=== PATIENT | female | born 1990 | race Caucasian/White ===

== ENCOUNTER → 2020-02-04 14:27 | Outpatient (CLI) | payer OTHER, SELFPAY ==
--- NOTE | 2020-02-04 14:30 | DI.US.S_ITS ---
PROCEDURE: US OB <= 14 WEEKS FETUS INDICATIONS: INITIAL DATING AND VIABILITY OUTSIDE/PRIOR DATING DATA: Last menstrual period (LMP): 12/03/19. LMP-based estimated date of delivery (GIFTY): 09/08/20. First dating scan (date and location): 02/04/20. Estimated date of delivery (GIFTY) from first dating scan: 09/13/20. TECHNIQUE: Real-time scanning was performed of the fetus and maternal pelvic organs, with image documentation. COMPARISON: None. FINDINGS: Embryo: A single live intrauterine is seen. The measured heart rate is 169 beats per minute. The crown-rump length measures 1.76 cm, corresponding to an estimated gestational age of 8 weeks 2 days. It is too early for detailed anatomic assessment. By visual inspection, the amount of amniotic fluid is within normal limits. No significant findings of subchorionic/perigestational hemorrhage are seen. Measurement variability in dating: +/- 4 weeks by LMP, +/- 7 days by mean sac diameter (use before 6 weeks gestation if crown-rump length not able to be measured), +/- 5 days by crown-rump length (up to 8 weeks 6 days gestation), +/- 7 days by crown-rump length (up to 13 weeks 6 days gestation). Maternal organs: Ovaries are not seen. Limited images through the kidneys demonstrate no hydronephrosis. IMPRESSION: A single live intrauterine is seen. No significant discrepancy is found between the estimated gestational age based on these images and the estimated gestational age based upon the given date of the last menstrual period. Dictated by: Zohaib Isaacs M.D. on 02/04/2020 at 15:56 Approved by: Zohaib Isaacs M.D. on 02/04/2020 at 15:57
[2020-02-04 16:17] LABS: Appearance Urine UA CLEAR; Bilirubin Urine UA NEGATIVE (NEGATIVE); Color Urine UA YELLOW; Glucose Urine UA NEGATIVE (Negative); Ketones Urine UA NEGATIVE (NEGATIVE); Leukocyte Esterase Urine UA TRACE (NEGATIVE); Nitrite Urine UA NEGATIVE (Negative); Occult Blood Urine UA TRACE-INTACT (Negative); Protein Urine UA NEGATIVE (Negative); Specific Gravity Urine UA <=1.005 (1.000-1.035); Urobilinogen Urine UA 0.2 E.U./dL (0.2)
[2020-02-04 16:27] LABS: pH Urine UA 5.5 (4.5-8.0)
[2020-02-04 16:31] LABS: Add Manual Diff / Slide Review NO; Basophils Absolute Auto 0 /uL (0-100); Basophils Percent Auto 0.4 % (0-2); Eosinophils Absolute Auto 100 /uL (0-450); Eosinophils Percent Auto 1.5 % (2-4); Hematocrit 41.9 % (36-46); Hemoglobin 13.8 g/dL (12.0-16.0); Lymphocytes Absolute Auto 1500 /uL (1100-4500); Lymphocytes Percent Auto 22.9 % (25-40); Mean Corpuscular Hemoglobin 29.8 PG (26-34); Mean Corpuscular Volume 90.3 fL (80-100); Monocytes Absolute Auto 400 /uL (0-900); Monocytes Percent Auto 6.3 % (3-14); Neutrophils Absolute Auto 4400 /uL (1500-7000); Neutrophils Percent Auto 68.9 % (50-75); Platelet Count 184 X10^3/uL (150-400); Red Blood Cell Count 4.64 X10^6/uL (4.0-5.2); Red Cell Distribution Width 13.9 % (11.6-14.8); White Blood Cell Count 6.4 X10^3/uL (4.5-11.0)
[2020-02-04 16:41] LABS: Bacteria Urine Few (2-10); RBC Urine 0-1/HPF (0-5/HPF); Squamous Epithelial Cell Urine 5-10 /HPF (0-5/HPF); WBC Urine 0-1/HPF (0-5/HPF)
[2020-02-05 03:36] LABS: RPR Screen Non Reactive (Non Reactive)
[2020-02-05 10:26] LABS: Varicella IgG Antibody 2433 index (Immune >165)
[2020-02-06 15:34] LABS: Hepatitis B Surface Antigen NEGATIVE s/c (NEGATIVE)
[2020-02-06 15:50] LABS: HIV 1 & 2 Ab/Ag 4th Gen Combo NEGATIVE (NEGATIVE)
[2020-02-06 17:01] LABS: Hep C Virus Ab w/Reflex Quant NEGATIVE s/c (NEGATIVE)
== END ==
PROVIDERS: PCP Family Medicine; Referring Provider Family Medicine; Visit Provider Family Medicine
DX: Z34.81 Encounter for supervision of other normal pregnancy, first trimester (principal); Z3A.08 8 weeks gestation of pregnancy
CPT/HCPCS: 36415; 76801; 80055; 81003; 81015; 86787; 86803; 86850; 86900; 86901; 87086; 87389

== ENCOUNTER 2020-03-07 20:37 | Emergency (ER) | payer OTHER, SELFPAY ==
[2020-03-07 20:50] VITALS: BP 124/69; PULSE 76; RESP 20; TEMP 36.3; O2SAT 100; BMI 32.1
[2020-03-07] MEDS: ONDANSETRON 4 MG/2 ML INJ IV (22:23)
[2020-03-07] MEDS: SODIUM CHLORIDE 0.9% 1,000 ML 1000 ML IV ×2 (22:24→23:06)
--- NOTE | 2020-03-07 22:26 | PC.NURSE ---
13 weeks has had some intermittent vomiting associated with nausea. Today worse than it has been. Tried zofran at home with no relief. Generalized fatigue and exhaustion. Nauseated upon arrival to ER.
[2020-03-07 22:36] LABS: Add Manual Diff / Slide Review NO; Basophils Absolute Auto 0 /uL (0-100); Basophils Percent Auto 0.4 % (0-2); Eosinophils Absolute Auto 0 /uL (0-450); Eosinophils Percent Auto 0.4 % (2-4); Hemoglobin 13.8 g/dL (12.0-16.0); Lymphocytes Absolute Auto 1100 /uL (1100-4500); Lymphocytes Percent Auto 13.8 % (25-40); Mean Corpuscular HGB Conc 34.5 % (30-36); Mean Corpuscular Hemoglobin 30.7 PG (26-34); Mean Corpuscular Volume 88.9 fL (80-100); Monocytes Absolute Auto 300 /uL (0-900); Monocytes Percent Auto 4.4 % (3-14); Neutrophils Absolute Auto 6400 /uL (1500-7000); Platelet Count 158 X10^3/uL (150-400); Red Blood Cell Count 4.49 X10^6/uL (4.0-5.2); Red Cell Distribution Width 14.2 % (11.6-14.8); White Blood Cell Count 7.9 X10^3/uL (4.5-11.0)
[2020-03-07 22:42] LABS: Alanine Aminotransferase 16 IU/L (<35); Albumin 4.2 g/dL (3.5-5.0); Albumin Globulin Ratio 1.4 (1.0-2.8); Alkaline Phosphatase 43 U/L (38-126); Aspartate Aminotransferase 23 IU/L (14-36); Bilirubin Total 0.5 mg/dL (0.2-1.3); Blood Urea Nitrogen 10 mg/dL (7-17); Calcium 8.7 mg/dL (8.4-10.2); Carbon Dioxide 25 mmol/L (22-32); Chloride 103 mmol/L (98-107); Estimated Glomerular Filt Rate > 60.0 mL/min (>60); Glucose 97 mg/dL (70-100); HEMOLYSIS < 15 (0-50); Potassium 3.6 mmol/L (3.4-5.1); Sodium 135 mmol/L (137-145); Total Protein 7.2 g/dL (6.3-8.2)
[2020-03-07 23:40] LABS: RBC Urine None Seen (0-5/HPF)
[2020-03-07 23:42] LABS: Appearance Urine UA CLEAR; Bilirubin Urine UA NEGATIVE (NEGATIVE); Color Urine UA YELLOW; Glucose Urine UA NEGATIVE (Negative); Ketones Urine UA 3+ (NEGATIVE); Leukocyte Esterase Urine UA NEGATIVE (NEGATIVE); Nitrite Urine UA NEGATIVE (Negative); Occult Blood Urine UA TRACE-LYSED (Negative); Protein Urine UA NEGATIVE (Negative); Specific Gravity Urine UA >=1.030 (1.000-1.035); Urobilinogen Urine UA 0.2 E.U./dL (0.2)
[2020-03-07 23:43] LABS: pH Urine UA 5.5 (4.5-8.0)
[2020-03-07 23:53] LABS: Squamous Epithelial Cell Urine 1-5 /HPF (0-5/HPF); WBC Urine 0-1/HPF (0-5/HPF)
[2020-03-07 23:54] LABS: Bacteria Urine Few (2-10); Culture Indicated Urine Cult Not Indicated
--- NOTE | 2020-03-08 00:26 | PC.NURSE ---
Pt given ice chips and ginerale per request, will monitor.
--- NOTE | 2020-03-08 00:57 | ED_ITS ---
HPI - Nausea/Vomiting/Diarrhea General Chief complaint: Nausea/Vomiting/Diarrhea Stated complaint: 13wks preg, vomiting Time Seen by Provider: 03/07/20 21:48 Source: patient Mode of arrival: Ambulatory Limitations: no limitations History of Present Illness HPI Narrative: 29-year-old at 13 weeks presents with vomiting for at least 24 hours and unable to keep anything down. She did take some oral Zofran at [facility] and found it to be ineffective. She is not having any vaginal cramping, discharge or bleeding. No diarrhea, no dysuria, no chest pain, shortness of breath, fever, flank pain. She has not had an overwhelming amount of related nausea and has only had a handful of episodes where she will have a mild episode of emesis after dinner. Related Data Home Medications Medication Instructions Recorded Confirmed doxylamine succinate 25 mg tablet 25 mg PO BEDTIME PRN 02/05/20 02/05/20 prenat.vits,oliver,kma-xiss-tsnjv 1 tab PO DAILY 02/05/20 02/05/20 pyridoxine (vitamin B6) 25 mg 25 mg PO DAILY 02/05/20 02/05/20 tablet Previous Rx's Medication Instructions Recorded ondansetron 4 mg disintegrating 4 mg PO Q8H PRN #20 tab 03/07/20 tablet Allergies Allergy/AdvReac Type Severity Reaction Status Date / Time No Known Drug Allergies Allergy Verified 02/05/20 13:03 Review of Systems Review of Systems Narrative: Remainder of review of systems including constitutional, ENT, cardiovascular, respiratory, GI, , musculoskeletal, skin, neurologic and ps ychiatric systems reviewed and are unremarkable except as noted in HPI. Patient History Medical History Febrile seizure (Acute) Surgical History H/O wisdom tooth extraction (Acute) S/P primary low transverse (Acute ~11/05/18) Family History Mother Hypertension Father Hypertension Grandfather Old age Prostate cancer Grandmother Dementia Grandmother Family estrangement Grandfather Family estrangement Social History marital status: number of children: 1 pets and animals: No education level: college occupational status: employed current occupational exposures/hazards: No Previous occupational history: Event [employer] duy/confucianist: Shinto special duy needs: No Smoking Status: Never smoker second hand exposure: No alcohol intake: former substance use type: does not use Smoking Status: Never smoker alcohol intake frequency: 0-2 drinks per day Substance Use Type: does not use Exam Narrative Exam Narrative: General: Healthy appearing, in no acute distress. Able to give a complete and coherent history. Well-nourished well-developed HEENT: Dry mucous membranes, normal sclera with reactive pupils, Respiratory: Lungs are clear to auscultation, no wheezing no rales no rhonchi. Full and symmetrical air movement Cardiac: Regular rate and rhythm no murmurs no bruits Abdomen: Soft, gravid, nontender good bowel tones, no flank pain Skin: Warm and dry, no rashes Neurologic: Grossly neurologically intact with no obvious asymmetries or abnorm alities Extremities: No trauma, well perfused Psych: Cooperative, appropriate insight and affect Bedside ultrasound: Viable intrauterine fetus Heart rate 160 Initial Vital Signs Initial Vital Signs: Vital Signs Temperature 97.4 F L 03/07/20 20:50 Pulse Rate 76 03/07/20 20:50 Respiratory Rate 20 03/07/20 20:50 Blood Pressure 124/69 03/07/20 20:50 Pulse Oximetry 100 03/07/20 20:50 Course Orders Ordered: ED Orders 03/07/20 22:19 Complete Blood Count AUTO DIFF Stat Comprehensive Metabolic Panel Stat 03/07/20 23:00 Urinalysis and Microscopic Stat Discontinued Medications Sodium Chloride (Normal Saline 0.9%) 1,000 mls @ 1,000 mls/hr IV BOLUS ONE Stop: 03/07/20 22:47 Last Infusion: 03/07/20 23:04 Dose: 0 mls/hr Documented by: Admin: 03/07/20 22:24 Dose: 1,000 mls/hr Documented by: YAJAIRA Sodium Chloride (Normal Saline 0.9%) 1,000 mls @ 1,000 mls/hr IV BOLUS ONE Stop: 03/08/20 00:04 Last Infusion: 03/08/20 00:34 Dose: 0 mls/hr Documented by: Admin: 03/07/20 23:06 Dose: 1,000 mls/hr Documented by: YAJAIRA Ondansetron HCl (Zofran) 4 mg IV NOW ONE Stop: 03/07/20 21:49 Last Admin: 03/07/20 22:23 Dose: 4 mg Documented by: YAJAIRA Vital Signs Vital signs: Vital Signs - 8 hr 03/07/20 20:50 Temperature 97.4 F L Pulse Rate 76 Respiratory Rate 20 Blood Pressure 124/69 Pulse Oximetry 100 MDM - Nausea/Vomiting/Diarrhea Medical Records Attestation: I reviewed the patient's medical records. Lab Data Attestation: I reviewed the patient's lab results. Result diagrams: 03/07/20 22:19 03/07/20 22:19 Labs: Lab Results 03/07/20 03/07/20 03/07/20 Range/Units 22:19 22:19 23:00 WBC 7.9 (4.5-11.0) X10^3/uL RBC 4.49 (4.0-5.2) X10^6/uL Hgb 13.8 (12.0-16.0) g/dL Hct 40.0 (36-46) % MCV 88.9 (80-100) fL MCH 30.7 (26-34) PG MCHC 34.5 (30-36) % RDW 14.2 (11.6-14.8) % Plt Count 158 (150-400) X10^3/uL Neut % (Auto) 81.0 H (50-75) % Lymph % (Auto) 13.8 L (25-40) % [place] % (Auto) 4.4 (3-14) % Eos % (Auto) 0.4 L (2-4) % Baso % (Auto) 0.4 (0-2) % Neut # (Auto) 6400 (4966-1471) /uL Lymph # (Auto) 1100 (7907-6496) /uL [place]yman # (Auto) 300 (0-900) /uL Eos # (Auto) 0 (0-450) /uL Baso # (Auto) 0 (0-100) /uL Sodium 135 L (137-145) mmol/L Potassium 3.6 (3.4-5.1) mmol/L Chloride 103 (98-107) mmol/L Carbon Dioxide 25 (22-32) mmol/L BUN 10 (7-17) mg/dL Creatinine 0.50 L (0.52-1.04) mg/dL Estimated GFR > 60.0 (>60) mL/min BUN/Creatinine Ratio 20.0 (6-22) Glucose 97 (70-100) mg/dL Calcium 8.7 (8.4-10.2) mg/dL Total Bilirubin 0.5 (0.2-1.3) mg/dL AST 23 (14-36) IU/L ALT 16 (<35) IU/L Alkaline Phosphatase 43 (38-126) U/L Total Protein 7.2 (6.3-8.2) g/dL Albumin 4.2 (3.5-5.0) g/dL Globulin 3.0 (1.7-4.1) g/dL Albumin/Globulin Ratio 1.4 (1.0-2.8) Urine Color Yellow Urine Appearance Clear Urine pH 5.5 (4.5-8.0) Ur Specific [place] >=1.030 H (1.000-1.035) Urine Protein Negative (Negative) Urine Glucose (UA) Negative (Negative) g/dL Urine Ketones 3+ H (NEGATIVE) Urine Occult Blood Trace-lysed (Negative) Urine Nitrate Negative (Negative) Urine Bilirubin Negative (NEGATIVE) Urine Urobilinogen 0.2 (0.2) E.U./dL Ur Leukocyte Esterase Negative (NEGATIVE) Urine RBC None seen (0-5/HPF) Urine WBC 0-1/hpf (0-5/HPF) Ur Squamous Epith Cells 1-5 /hpf (0-5/HPF) Urine Bacteria Few (2-10) H (None) Ur Culture Indicated? Cult not indicated MDM Narrative Medical decision making narrative: 29-year-old woman 13 weeks with 24 hours is significant nausea vomiting unable to keep fluids down. She has been given 2 L of fluid in the emergency department with spontaneous void after. She has been able to keep down mike rufina. Fetus is alive and well. Labs are reviewed and there is no evidence of significant infection, renal abnormality or electrolyte abnormality. Patient has Zofran available to her at home. Is feeling much better and safe for home discharge at this time Discharge Plan Departure Patient Disposition: Home Clinical Impression: Acute vomiting Qualifiers: Weeks of gestation: 13 weeks Qualified Code(s): Z3A.13 - 13 weeks gestation of Instructions: DI for Vomiting -- Adult Activity Restrictions/Additional Instructions: Thank you for coming in today I am glad we were able to get she feeling better with some fluid and some Zofran. Your baby looks like it is growing beautifully. I do not have a full explanation for why you experienced such nausea today but I am not finding any life-threatening etiologies in reviewing her blood work today Please do use Zofran over the next 24 hours to avoid getting back into another cycle where your unable to control your nausea. I hope the rest of your goes well. Prescriptions: No Action ondansetron 4 mg tablet,disintegrating 4 mg PO Q8H PRN (Reason: nausea and vomiting) Qty: 20 RF: 1 prenat.vits,oliver,[id number]-[id number] Tablet 1 tab PO DAILY RF: 0 Unisom (doxylamine) 25 mg tablet 25 mg PO BEDTIME PRNRF: 0 pyridoxine (vitamin B6) 25 mg tablet 25 mg PO DAILY RF: 0 Referrals: Jessica Marcos DO [Primary Care Provider] -
[2020-03-08 01:33] VITALS: BP 97/54; PULSE 65; RESP 14; TEMP 36.8; O2SAT 99
== END 2020-03-08 01:22 | disposition home or self-care (01) ==
PROVIDERS: Emergency Provider Emergency Medicine; PCP Family Medicine
DX: O21.9 Vomiting of pregnancy, unspecified (principal); Z3A.13 13 weeks gestation of pregnancy
CPT/HCPCS: 36415; 80053; 81001; 85025; 96361; 96374; 99284; J2405

== ENCOUNTER → 2020-04-02 13:42 | Outpatient (CLI) | payer OTHER, SELFPAY ==
[2020-04-02 15:13] LABS: Urine N gonorrhoeae NOT DETECTED
[2020-04-02 15:27] LABS: Urine Chlamydia NOT DETECTED
== END ==
PROVIDERS: PCP Family Medicine; Visit Provider Family Medicine
DX: Z11.3 Encounter for screening for infections with a predominantly sexual mode of transmission (principal); Z11.8 Encounter for screening for other infectious and parasitic diseases; Z3A.16 16 weeks gestation of pregnancy
CPT/HCPCS: 87491; 87591

== ENCOUNTER → 2020-04-29 15:44 | Outpatient (CLI) | payer OTHER, SELFPAY ==
--- NOTE | 2020-04-29 15:45 | DI.US.S_ITS ---
PROCEDURE: US OB >= 14 WEEKS FETUS INDICATIONS: ANATOMY OUTSIDE/PRIOR DATING DATA: Last menstrual period (LMP): 12/03/19. LMP-based estimated date of delivery (GIFTY): 09/08/20 . First dating scan (date and location): 02/04/20 . Estimated date of delivery (GIFTY) from first dating scan: 09/13/20 . TECHNIQUE: Real-time scanning was performed of the fetus, with image documentation and biometric measurements. Endovaginal scanning: Not needed. COMPARISON: None. FINDINGS: General: A single living intrauterine gestation is present. Presentation: Breech changing to transverse head right Placenta: Placental position is anterior , without previa. Amniotic fluid index: 13.9 cm, normal range is 5-24 cm. heart rate: 147 beats per minute. Maternal cervical canal: 3.5 cm long. Normal lower limit is 2.5 cm. biometrics: Biparietal diameter: 4.8 cm, 20 weeks 4 days Head circumference: 18.3 cm, 20 weeks 5 days Abdominal circumference: 15.3 cm, Femur length: 3.4 cm, 20 weeks 3 days 20 weeks 3 days Estimated gestational age from initial scan: 20 weeks 3 days Composite gestational age from present scan: 20 weeks 4 days Estimated weight and percentile: 359 g, 55th percentile Measurement variability for biometric dating: +/- 7 days from 14 weeks to 15 weeks 6 days gestation, +/- 10 days from 16 weeks to 21 weeks 6 days gestation, +/- 2 weeks from 22 weeks to 27 weeks 6 days gestation, +/- 3 weeks for 28 weeks gestation or later. weight reference: 4500 g or EFW >90/95% is considered macrosomia or large for gestational age. EFW <10% is small for gestational age. EFW 5% or less is considered intra-uterine growth restriction. Anatomic survey: Neuro: Ventricles are non-dilated at less than 10 mm. Cisterna magna is normal at 3-11 mm. Cerebellum is normal in size and morphology. Nuchal skin fold: Normal at less than 6 mm between 14-21 weeks gestational age. Face: Nose and lips, facial profile are normal. Spine: No evidence for spina bifida. Heart: 4-chambered heart is present, with normal ventricular outflow tracts. Diaphragm: Diaphragm is intact. Stomach: Left-sided stomach is present. Kidneys: No hydronephrosis. Normal is less than 5 mm in 2nd trimester, less than 7 mm in 3rd trimester. Cord: 3-vessel cord has orthotopic insertion. Bladder: Normal in size. Extremities: All 4 extremities identified. IMPRESSION: Appropriate interval growth, no anomaly seen. Dictated by: Raulito Mandujano M.D. on 04/30/2020 at 8:53 Approved by: Raulito Mandujano M.D. on 04/30/2020 at 9:13
[2020-05-02 17:36] LABS: AFP, Serum 80.6 ng/mL (.); Calc Gestational Age As provided (.); Estriol, Free 1.99 ng/mL (.); Inhibin A, MoM 1.25 (.); Maternal Ethnicity Caucasian (.); Maternal Weight 191 lbs (.); Number of Fetuses No (.); OSBR Risk 1 IN 329 (.); Results Report (.); Test Results *Screen Negative* (.); hCG, MoM 3.16 (.); hCG, Serum 86965 mIU/mL (.)
== END ==
PROVIDERS: PCP Family Medicine; Referring Provider Family Medicine; Visit Provider Family Medicine
DX: Z36.89 Encounter for other specified antenatal screening (principal); Z3A.20 20 weeks gestation of pregnancy
CPT/HCPCS: 36415; 76811; 82105; 82677; 84702; 86336

== ENCOUNTER → 2020-06-18 09:46 | Outpatient (CLI) | payer OTHER, SELFPAY ==
[2020-06-18 12:59] LABS: Hematocrit 33.7 % (36-46); Hemoglobin 11.3 g/dL (12.0-16.0)
[2020-06-18 13:18] LABS: GTT (PREG) 1 Hour PP 50gm Dose 71 mg/dL (76-139)
== END ==
PROVIDERS: PCP Family Medicine; Referring Provider Family Medicine; Visit Provider Family Medicine
DX: Z34.90 Encounter for supervision of normal pregnancy, unspecified, unspecified trimester (principal); Z3A.26 26 weeks gestation of pregnancy
CPT/HCPCS: 36415; 82950; 85014; 85018

== ENCOUNTER → 2020-08-18 15:44 | Outpatient (CLI) | payer OTHER, SELFPAY ==
[2020-08-19 14:26] LABS: Strep Grp B PCR POS for Grp B Strep
== END ==
PROVIDERS: PCP Family Medicine; Visit Provider Family Medicine
DX: Z34.90 Encounter for supervision of normal pregnancy, unspecified, unspecified trimester (principal); Z3A.36 36 weeks gestation of pregnancy
CPT/HCPCS: 87653

== ENCOUNTER → 2020-09-12 11:37 | Outpatient (CLI) | payer OTHER, SELFPAY ==
[2020-09-12 12:18] LABS: COVID19 -Nasal RAPID Negative (Negative)
== END ==
PROVIDERS: PCP Family Medicine; Visit Provider Nurse Practitioner
DX: Z11.59 Encounter for screening for other viral diseases (principal)
CPT/HCPCS: 87635

== ENCOUNTER 2020-09-14 06:04 | Inpatient (IN) | payer OTHER, SELFPAY ==
[2020-09-14 07:12] VITALS: BP 135/68
--- NOTE | 2020-09-14 07:14 | P.HPOB_ITS ---
OB HPI Date/Time Date of admission: 09/14/20 Date Patient Seen: 09/14/20 Time Patient Seen: 07:20 History of Present Condition Chief complaint: REPEAT : 2 Para: 1 Estimated Date of Delivery: 09/13/20 Estimated Gestational Age (weeks): 40w1d Narrative: Costa Mayfield is a 30 year old at 40 weeks and 1 day gestation here for repeat . has been uncomplicated with good care. Indications Operative indications ( section): previous uterine surgery History of Present care: good care Dating criteria: based on 1st trimester US only Ultrasounds: normal 1st trimester US and normal mid trimester US Obstetrical complications: none Medical complications: none Preadmission Labs Blood type: A (+) positive -: Antibody screen: negative, GBS status: positive, HBsAG: negative, HIV: negative and RPR/VDLR: negative -: Rubella: immune and Varicella: immune HCT: 40 HCAB: negative PAP: Normal Quad screen: Normal Urine: Mixed maria esther 1 hr GTT: 71 Prior (ies) History: 11/05/18 primary for arrest of labor at 40.4 weeks, 9 lb 13 oz male, breast fed 11.5 months Evaluation Evaluation Baseline heart rate: 130 Variability: Moderate (11-25) monitor accelerations: Present monitor decelerations: Absent Category of Tracing: Reactive PFSH Medical History Febrile seizure Surgical History H/O wisdom tooth extraction S/P primary low transverse (~11/05/18) Family History Mother Hypertension Father Hypertension Grandfather Old age Prostate cancer Grandmother Dementia Grandmother Family estrangement Grandfather Family estrangement Social History marital status: number of children: 1 pets and animals: No education level: college occupational status: employed current occupational exposures/hazards: No Previous occupational history: Event Co[employer]inating [facility] [employer] duy/voodoo: Denominational special duy needs: No Smoking Status: Never smoker second hand exposure: No alcohol intake: former substance use type: does not use Meds Home Medications and Allergies Home Medications Medication Instructions Recorded Confirmed Type doxylamine succinate 25 mg tablet 25 mg PO BEDTIME PRN 02/05/20 02/05/20 History prenat.vits,oliver,eqw-lspi-xcejl 1 tab PO DAILY 02/05/20 02/05/20 History pyridoxine (vitamin B6) 25 mg 25 mg PO DAILY 02/05/20 02/05/20 History tablet ondansetron 4 mg disintegrating 4 mg PO Q8H PRN #20 tab 03/07/20 Rx tablet Allergies Allergy/AdvReac Type Severity Reaction Status Date / Time No Known Drug Allergies Allergy Verified 02/05/20 13:03 Review of Systems Review of Systems ROS: Yes All systems reviewed with the patient and are negative except as otherwise documented Exam Vital Signs (past 8 hours): BP 135/68 HR 71 Const General: healthy appearing and comfortable HENMT Head: normal to inspection Ears: hearing grossly normal bilaterally Nose: external nose normal Face and sinus: normal facial exam Mouth: oral mucosae normal Eyes General: appearance normal, both eyes and all related structures Neck Neck: normal visual inspection Resp Effort & Inspection: normal respiratory effort Auscultation: clear to auscultation bilaterally Cardio Rate: regular rate Rhythm: regular rhythm Heart Sounds: no murmurs GI Other: Gravid, healed low transverse incision scar Back/Spine/Pelvis Back: normal to inspection Skin General: no rashes or lesions noted Extrem General: normal to inspection and no pedal edema Assessment and Plan Assessment and Plan Assessment and Plan narrative: 30 year old at 40 weeks and 1 day gestation here for repeat . Risks and benefits reviewed including risk of bleeding, infection or injury to surrounding organs. Consent signed and in the chart. COVID-19 negative. Will give 2g Ancef prior to surgery.
--- NOTE | 2020-09-14 07:33 | PM.PREOP ---
Pre-operative Note COVID-19 COVID-19 status: Negative Result date/Date tested (Pos, Neg/Pending): 09/12/20 Interval Note History & Physical reviewed/Exam performed by Physician: Yes Changes to H&P: No
[2020-09-14] MEDS: LACTATED RINGERS 1,000 ML 999 ML IV ×3 (07:40→09:15)
[2020-09-14 07:47] LABS: Add Manual Diff / Slide Review NO; Basophils Absolute Auto 100 /uL (0-100); Basophils Percent Auto 0.7 % (0-2); Eosinophils Absolute Auto 100 /uL (0-450); Eosinophils Percent Auto 0.9 % (2-4); Hematocrit 36.8 % (36-46); Hemoglobin 11.9 g/dL (12.0-16.0); Lymphocytes Absolute Auto 2100 /uL (1100-4500); Lymphocytes Percent Auto 22.3 % (25-40); Mean Corpuscular HGB Conc 32.4 % (30-36); Mean Corpuscular Hemoglobin 28.2 PG (26-34); Mean Corpuscular Volume 86.9 fL (80-100); Monocytes Absolute Auto 900 /uL (0-900); Monocytes Percent Auto 8.8 % (3-14); Neutrophils Absolute Auto 6500 /uL (1500-7000); Neutrophils Percent Auto 67.3 % (50-75); Platelet Count 202 X10^3/uL (150-400); Red Blood Cell Count 4.24 X10^6/uL (4.0-5.2); Red Cell Distribution Width 17.2 % (11.6-14.8); White Blood Cell Count 9.7 X10^3/uL (4.5-11.0)
[2020-09-14] MEDS: CEFAZOLIN 2 GM/100 ML FROZ.PIGGY IV (07:47)
--- NOTE | 2020-09-14 08:17 | SUR.OPER ---
Supine on Padded OR bed, head on pillow, safety belt at thigh, arms secured on padded arm boards at <90 degrees abduction. Bump under right buttock. Legs uncrossed, tape over blanket to lower legs.
--- NOTE | 2020-09-14 08:46 | SUR.OPER ---
Live female at 0823. See L&D note.
[2020-09-14 09:29] VITALS: BP 122/54; PULSE 82; RESP 20; TEMP 35.7; O2SAT 99
[2020-09-14 09:34] VITALS: BP 113/62; PULSE 83; RESP 20; O2SAT 100
[2020-09-14 09:39] VITALS: BP 117/52; PULSE 80; RESP 18; O2SAT 99
[2020-09-14 09:45] VITALS: BP 113/48; PULSE 84; RESP 18; TEMP 36.3; O2SAT 100
--- NOTE | 2020-09-14 09:45 | P.OP_ITS ---
Operative Date/Time/Diagnoses Date of procedure: 09/14/20 Time of procedure: 08:00 Pre-op diagnosis: Prior section 40 weeks of Post-op diagnosis: same Procedure & Clinicians Procedure: Repeat low transverse section Same procedure as scheduled: Yes Indications: Prior section Surgeon: Jessica Marcos Bleach Machine Operator: Renetta Burnette Click Yes if Unassisted: No Anesthesia Type: Spinal Operative Notes Findings: 9#9oz Female infant with apgars of 7 and 7, normal tubes, uterus and ovaries Closure Type: primary Specimen(s): none sent Applied: catheter Estimated Blood Loss (mL): 500 Procedure in detail: The patient was taken to the operating room where she was placed in the seated position. Spinal anesthesia was administered. She was then placed in the dorsal supine position with a leftward tilt. She was prepped and draped in the usual sterile fashion. A timeout was performed. Patient had an episode of hypotension after spinal which resolved with medication from anesthesia. After spinal analgesia was found to be adequate, a Pfannenstiel skin incision was made 2 fingerbreadths above the pubic symphysis and carried through to the underlying layer fascia. The fascia was nicked in the midline and the incision extended bilaterally with Metz scissors. The superior aspect of the fascial incision was grasped with a Nayeli clamps, elevated, and the underlying rectus muscles dissected off sharply and bluntly. Attention was then turned to the inferior aspect of this incision which in a similar fashion was grasped with a Nayeli clamps, elevated, and the underlying rectus muscles dissected off sharply and bluntly. The rectus muscles were in the midline. The peritoneum was identified, grasped between 2 hemostats, and entered sharply with the Metzenbaum scissors. This incision was extended superiorly and inferiorly with good visualization of the bladder. The bladder blade was inserted. The vesicouterine peritoneum was identified, grasped with the pickup, and entered sharply with the Metzenbaum scissors. This incision was extended bilaterally, and the bladder flap was created digitally. The bladder blade was reinserted. The lower uterine segment was incised in a transverse fashion with the scalpel. Upon entering the amniotic sac there was a small amount clear amniotic fluid. Dr. Marcos attempted to deliver ' head but it was quite large and was unable to do so. Dr. Burnette was able to successfully deliver the head with fundal pressure from Dr. Marcos and the remainder of the body delivered without difficulty. The cord was double clamped and cut. The was handed off to waiting RN and RT. The placenta was delivered after traction on the cord. The uterus was cleared of all clots and debris then externalized for better visualization. The uterine incision was repaired with O-chromic in a running interlocking fashion and a second layer the same suture was used for an imbricating layer. Hemostasis was achieved. The tubes and ova lasha were examined and were found to be normal and the uterus placed back in the pelvis. The gutters were cleared of all clots and debris. The bladder flap was reapproximated using 2-0 Vicryl in a running fashion. The parietal peritoneum was closed using 2-0 Vicryl in a running fashion. The fascia was reapproximated using 0 Vicryl in a running fashion. Subcutaneous layer was copiously irrigated with warm normal saline. 5 simple interrupted sutures of 3-0 Vicryl were placed to reapproximate the subcutaneous layer. The skin was closed with 4-0 undyed Vicryl in a subcuticular fashion. Steri-Strips were placed. An Aquacel dressing was placed. The uterus was expressed of a small amount of old blood. Sponge, lap, and instrument counts were correct. The patient tolerated the procedure well, and was taken to PACU in stable condition. Dr. Burnette was present throughout the case and was essential to assist with retraction, bleeding control, suturing and delivery of infant. After was handed off to waiting RN and RT she was initially dried and suction. She was pink with a good heart rate but oxygen saturations were in the 50s at 4 minutes of life. She delee suctioned with removed of 12 ml of fluid and started on CPAP, transferred to the nursery. She transitioned from CPAP to NC by 20 minutes of life and gradually weaned off oxygen by 2 hours of life. Complications: none Post-operative Condition: stable Disposition: PACU
[2020-09-14 09:49] VITALS: BP 116/48; PULSE 80; RESP 14; O2SAT 100
[2020-09-14] MEDS: KETOROLAC 30 MG/ML VIAL IV ×2 (14:45→20:55)
[2020-09-14] MEDS: LANOLIN OINT 7 GM 1 APPLIC TOP (16:03)
[2020-09-14] MEDS: ONDANSETRON 4 MG/2 ML INJ IV (16:05)
[2020-09-14] MEDS: LACTATED RINGERS 1,000 ML 100 ML IV (17:00)
[2020-09-14] MEDS: diphenhydrAMINE 50 MG/ML VIAL 25 MG IV (21:46)
[2020-09-15] MEDS: KETOROLAC 30 MG/ML VIAL IV (02:58)
[2020-09-15] MEDS: ONDANSETRON 4 MG/2 ML INJ IV (05:56)
[2020-09-15] MEDS: HYDROCODONE/ACET 5/325 TABLET 1 TAB PO (05:57)
[2020-09-15 06:32] LABS: Add Manual Diff / Slide Review NO; Basophils Absolute Auto 0 /uL (0-100); Basophils Percent Auto 0.3 % (0-2); Eosinophils Absolute Auto 100 /uL (0-450); Eosinophils Percent Auto 0.7 % (2-4); Hematocrit 30.1 % (36-46); Hemoglobin 9.6 g/dL (12.0-16.0); Lymphocytes Absolute Auto 2100 /uL (1100-4500); Lymphocytes Percent Auto 17.8 % (25-40); Mean Corpuscular Volume 87.4 fL (80-100); Monocytes Absolute Auto 900 /uL (0-900); Monocytes Percent Auto 7.3 % (3-14); Neutrophils Absolute Auto 8700 /uL (1500-7000); Neutrophils Percent Auto 73.9 % (50-75); Platelet Count 183 X10^3/uL (150-400); Red Blood Cell Count 3.44 X10^6/uL (4.0-5.2); Red Cell Distribution Width 17.1 % (11.6-14.8); White Blood Cell Count 11.8 X10^3/uL (4.5-11.0)
--- NOTE | 2020-09-15 08:05 | P.PNOB_ITS ---
Subjective - OB Subjective Patient comments: no complaints, pain well controlled and tolerating diet baby status: doing well feeding status: exclusively breast feeding Date Patient Seen: 09/15/20 Time Patient Seen: 07:50 Interval history: No complaints this morning. Has not yet voided since catheter removal but has been up. Bleeding is light and pain controlled. Tolerating a diet. Looking forward to showering this morning. Exam Vital Signs (past 8 hours): Oxygen Delivery Method Room Air Temperature 97.3? blood pressure 96/54 heart rate 87 respirations 19 Narrative Exam Narrative: General: Awake and alert, no acute distress. HEENT: NCAT, EOMI, moist oral mucosa CV: Regular rate and rhythm, no murmurs, rubs or gallops Lungs: CTAB, no wheezes, rales, or rhonchi Abdomen: Aquacel dressing intact without drainage. Soft, nontender; bowel tones active; uterus firm 1 cm below umbilicus. Extremities: Warm, no edema bilaterally, 2+ pedal pulses bilaterally Objective Labs Result Diagrams: 09/15/20 06:24 Labs: Laboratory Results - last 24 hr 09/14/20 09/15/20 07:35 06:24 WBC 11.8 H RBC 3.44 L Hgb 9.6 L Hct 30.1 L MCV 87.4 MCH 28.0 MCHC 32.0 RDW 17.1 H Plt Count 183 Neut % (Auto) 73.9 Lymph % (Auto) 17.8 L [place] % (Auto) 7.3 Eos % (Auto) 0.7 L Baso % (Auto) 0.3 Neut # (Auto) 8700 H Lymph # (Auto) 2100 [place] # (Auto) 900 Eos # (Auto) 100 Baso # (Auto) 0 Blood Type A Positive Antibody Screen Negative Assessment & Plan Assessment and Plan (1) S/P : Status: Acute (2) 40 weeks gestation of : Status: Acute Plan day: 1 plan OB: routine postop care Comments: Encouraged her to get up out of bed today. Anticipate discharge home tomorrow. Time Spent With Patient Time: Total time spent is greater than 50% in coordination of care (as documented) at patient's floor/unit and/or counseling patient: Time with patient: less than 15 minutes
[2020-09-15] MEDS: ACETAMINOPHEN 325 MG TABLET 650 MG PO ×3 (09:23→21:20)
[2020-09-15] MEDS: DOCUSATE 250 MG CAPSULE PO (09:24)
[2020-09-15] MEDS: IBUPROFEN 600 MG TABLET PO ×3 (09:24→21:21)
[2020-09-15] MEDS: PRENATAL VIT,CALC/IRON/FOLIC 1 TABLET 1 TAB PO (09:24)
[2020-09-16] MEDS: IBUPROFEN 600 MG TABLET PO ×2 (03:20→09:00)
[2020-09-16] MEDS: ACETAMINOPHEN 325 MG TABLET 650 MG PO (03:20)
[2020-09-16 07:37] VITALS: BP 124/63; PULSE 80; RESP 14; TEMP 37.1
--- NOTE | 2020-09-16 07:46 | PM.OBDS.1 ---
Discharge Providers Provider Date of admission: 09/14/20 06:04 Discharge Date: 09/16/20 Primary care physician: Jessica Marcos DO Consults: 09/14/20 10:14 Consult to Telegraph Repeater Technician Routine Comment: Discharge provider: Jessica Marcos DO Summary Hospital Course Date Patient Seen: 09/16/20 Time Patient Seen: 10:30 Procedures: Repeat low transverse section Hospital Course: 30 year old [id number] after uncomplicated repeat section on 09/14/20 at 40 weeks and 1 day gestation. Patient had an episode of hypotension after spinal placement which resolved with medication from anesthesia. She was delivered of a 9 lb 9 oz female with apagars of 7 and 7. required CPAP initially for hypoxia then transitioned to nasal cannula. Infant weaned to room air over 2 hours and did well. was going very well. course uncomplicated. Patient was ambulating, voiding, passing flatus and tolerating a diet. Vaginal bleeding was light and pain controlled with Tylenol and ibuprofen with minimal hydrocodone. Patient was advised to call for fevers, severe pain or bleeding through more than a pad an hour. She will follow up in clinic on 09/21 for Aquacel removal. Peripartum Data Infant Delivery Method: Section complications: none [place] 1: Gender: Female Disposition of : home Discharge Diagnosis (1) S/P : Status: Acute (2) 40 weeks gestation of : Status: Acute Status at Discharge Functional status at discharge: independent ambulation Overall status at discharge: patient is progressing back to baseline Time Spent with Patient Time attestation: Total time spent providing and/or coordinating discharge services: Time spent: Less than 30 minutes Objective Labs Result Diagrams: 09/15/20 06:24 Exam Vital Signs (past 8 hours): Oxygen Delivery Method Room Air Temperature 97.4? blood pressure 108/71 heart rate 73 respirations 17 Narrative Exam Narrative: General: Awake and alert, no acute distress. HEENT: NCAT, EOMI, moist oral mucosa CV: Regular rate and rhythm, no murmurs, rubs or gallops Lungs: CTAB, no wheezes, rales, or rhonchi Abdomen: Aquacel dressing intact without drainage. Soft, nontender; bowel tones active; uterus firm 1 cm below umbilicus. Extremities: Warm, no edema bilaterally Discharge Plan Discharge Plan Patient Disposition: Home Discharge orders & Medications Prescriptions: New acetaminophen 325 mg Tablet 650 mg PO Q6HR PRN (Reason: Fever/Mild Pain (1-3)) Qty: 30 RF: 0 Continued hydrocodone-acetaminophen 5-325 mg tablet 1 tab PO Q4HR PRN (Reason: Pain, Moderate (4-6)) Qty: 10 RF: 0 docusate sodium 250 mg capsule 250 mg PO DAILY Qty: 30 RF: 0 ibuprofen 600 mg tablet 600 mg PO Q6HR PRN (Reason: Fever/Mild Pain (1-3)) Qty: 30 RF: 0 ondansetron 4 mg tablet,disintegrating 4 mg PO Q8H PRN (Reason: nausea and vomiting) Qty: 20 RF: 1 prenat.vits,oliver,wfl-pprd-hpoty Tablet 1 tab PO DAILY RF: 0 Follow up/Referrals: Jessica Marcos DO [Primary Care Provider] - 09/21/20 1:00 pm Diet/Activity/Treatments Diet: Diet as Tolerated Skin/Wound/Dressing Care Report to your healthcare provider any signs of infection, such as:: chills, fever, increased pain, unusual drainage and unusual redness Visit Report/Discharge Packet Stand Alone Forms: Discharge: Care Visit Report Forms: Patient Portal/API, Stroke Signs & Symptoms Discharge Data Primary Care Provider: Jessica Marcos
[2020-09-16] MEDS: PRENATAL VIT,CALC/IRON/FOLIC 1 TABLET 1 TAB PO (09:06)
[2020-09-16] MEDS: DOCUSATE 250 MG CAPSULE PO (09:06)
[2020-09-16] MEDS: ONDANSETRON 4 MG ODT PO (09:06)
[2020-09-16] MEDS: HYDROCODONE/ACET 5/325 TABLET 1 TAB PO (09:31)
== END 2020-09-16 11:15 | disposition home or self-care (01) | DRG 788 ==
PROVIDERS: Admitting Provider Family Medicine; PCP Family Medicine; Referring Provider Family Medicine; Visit Provider Family Medicine
PROC: 10D00Z1 Extraction of Products of Conception, Low, Open Approach (ICD-10-PCS; CPT 59514; principal; 2020-09-14 07:45)
DX: O34.219 Maternal care for unspecified type scar from previous cesarean delivery (principal); Z3A.40 40 weeks gestation of pregnancy; Z37.0 Single live birth; O99.824 Streptococcus B carrier state complicating childbirth
CPT/HCPCS: 36415; 59050; 59510; 59514; 85025; 86850; 86900; 86901; J0690; J1200; J1885; J2274; J2405; J2590; J2765; J3010

== ENCOUNTER → 2023-02-07 10:30 | Outpatient (CLI) | payer OTHER, SELFPAY ==
[2023-02-07 11:26] LABS: Add Manual Diff / Slide Review NO; Basophils Absolute Auto 0 /uL (0-100); Basophils Percent Auto 0.5 % (0-2); Eosinophils Absolute Auto 100 /uL (0-450); Eosinophils Percent Auto 1.7 % (2-4); Hematocrit 39.9 % (36-46); Hemoglobin 13.3 g/dL (12.0-16.0); Lymphocytes Absolute Auto 2000 /uL (1100-4500); Lymphocytes Percent Auto 35.1 % (25-40); Mean Corpuscular HGB Conc 33.3 % (30-36); Mean Corpuscular Hemoglobin 29.2 PG (26-34); Mean Corpuscular Volume 87.6 fL (80-100); Monocytes Absolute Auto 300 /uL (0-900); Monocytes Percent Auto 5.7 % (3-14); Neutrophils Absolute Auto 3300 /uL (1500-7000); Platelet Count 163 X10^3/uL (150-400); Red Blood Cell Count 4.55 X10^6/uL (4.0-5.2); Red Cell Distribution Width 14.6 % (11.6-14.8); White Blood Cell Count 5.8 X10^3/uL (4.5-11.0)
[2023-02-07 11:47] LABS: Erythrocyte Sedimentation Rate 4 MM/HR (0-20)
[2023-02-07 12:13] LABS: Alanine Aminotransferase 20 IU/L (<35); Albumin Globulin Ratio 1.6 (1.0-2.8); Alkaline Phosphatase 38 U/L (38-126); Aspartate Aminotransferase 21 IU/L (14-36); Bilirubin Total 0.3 mg/dL (0.2-1.3); Blood Urea Nitrogen 12 mg/dL (7-17); C-Reactive Protein Quant 0.6 mg/dL (<1.0); Calcium 8.6 mg/dL (8.4-10.2); Carbon Dioxide 30 mmol/L (22-32); Chloride 103 mmol/L (98-107); Estimated Glomerular Filt Rate > 60 mL/min (>60); Globulin 2.5 g/dL (1.7-4.1); Glucose 70 mg/dL (70-100); HEMOLYSIS < 15 (0-50); Potassium 4.3 mmol/L (3.4-5.1); Sodium 138 mmol/L (137-145); Total Protein 6.5 g/dL (6.3-8.2)
== END ==
PROVIDERS: PCP Family Medicine; Referring Provider Family Medicine; Visit Provider Family Medicine
DX: T69.1XXA Chilblains, initial encounter (principal); D64.9 Anemia, unspecified
CPT/HCPCS: 36415; 80053; 85025; 85651; 86140

== ENCOUNTER → 2024-02-28 12:29 | Outpatient (CLI) | payer OTHER, SELFPAY ==
--- NOTE | 2024-02-28 12:32 | DI.RAD.S_ITS ---
PROCEDURE: XR ANKLE RT MIN 3V INDICATIONS: Right ankle injury TECHNIQUE: 3 views of the ankle were acquired. COMPARISON: None. FINDINGS: Bones: No fractures or dislocations. Ankle mortise is normally aligned. No suspicious bony lesions. Soft tissues: No tibiotalar joint effusion. Achilles tendon appears normal. IMPRESSION: No acute bony abnormality or significant effusion. If pain persists, followup imaging in 5-7 days is recommended to exclude occult fracture. Dictated by: Chayo Andre M.D. on 02/28/2024 at 16:23 Approved by: Chayo Andre M.D. on 02/28/2024 at 16:26
== END ==
PROVIDERS: PCP Family Medicine; Referring Provider Nurse Practitioner Family; Visit Provider Nurse Practitioner Family
DX: S99.911A Unspecified injury of right ankle, initial encounter (principal); X58.XXXA Exposure to other specified factors, initial encounter
CPT/HCPCS: 73610

== ENCOUNTER → 2024-08-13 14:43 | Outpatient (CLI) | payer OTHER, SELFPAY ==
[2024-08-13 16:55] LABS: Urine N gonorrhoeae NOT DETECTED
[2024-08-13 17:01] LABS: Urine Chlamydia NOT DETECTED
== END ==
PROVIDERS: Visit Provider Obstetrics & Gynecology
DX: Z34.81 Encounter for supervision of other normal pregnancy, first trimester (principal); Z3A.10 10 weeks gestation of pregnancy
CPT/HCPCS: 87491; 87591

== ENCOUNTER → 2024-08-13 15:34 | Outpatient (CLI) | payer OTHER, SELFPAY ==
[2024-08-13 16:36] LABS: Add Manual Diff / Slide Review NO; Basophils Absolute Auto 0 /uL (0-100); Basophils Percent Auto 0.4 % (0-2); Eosinophils Absolute Auto 100 /uL (0-450); Eosinophils Percent Auto 1.5 % (2-4); Hematocrit 40.6 % (36-46); Hemoglobin 13.6 g/dL (12.0-16.0); Lymphocytes Absolute Auto 1600 /uL (1100-4500); Lymphocytes Percent Auto 21.1 % (25-40); Mean Corpuscular HGB Conc 33.5 % (30-36); Mean Corpuscular Volume 89.6 fL (80-100); Monocytes Absolute Auto 400 /uL (0-900); Monocytes Percent Auto 5.9 % (3-14); Neutrophils Absolute Auto 5400 /uL (1500-7000); Neutrophils Percent Auto 71.1 % (50-75); Platelet Count 190 X10^3/uL (150-400); Red Blood Cell Count 4.53 X10^6/uL (4.0-5.2); Red Cell Distribution Width 14.8 % (11.6-14.8); White Blood Cell Count 7.6 X10^3/uL (4.5-11.0)
[2024-08-13 16:39] LABS: Natera Collection Specimen Collected
== END ==
PROVIDERS: Referring Provider Obstetrics & Gynecology; Visit Provider Obstetrics & Gynecology
DX: Z34.81 Encounter for supervision of other normal pregnancy, first trimester (principal); Z3A.10 10 weeks gestation of pregnancy
CPT/HCPCS: 36415; 80055; 86787; 86803; 86850; 86900; 86901; 87389; 87491; 87591

== ENCOUNTER → 2024-11-04 15:20 | Outpatient (CLI) | payer OTHER, SELFPAY ==
--- NOTE | 2024-11-04 15:21 | DI.US.S_ITS ---
PROCEDURE: US OB >= 14 WEEKS FETUS INDICATIONS: 20 week anatomy OUTSIDE/PRIOR DATING DATA: The calculations are made using the working GIFTY of 03/10/2025. TECHNIQUE: Real-time scanning was performed of the fetus, with image documentation and biometric measurements. Endovaginal scanning: Not performed COMPARISON: [facility], OB >= 14 WEEKS FETUS, 04/29/2020, 16:00. FINDINGS: General: A single living intrauterine gestation is present. Presentation: Breech. Placenta: Placental position is anterior , without previa. Amniotic fluid index: 16.6 cm, normal range is 5-24 cm. Single deepest vertical pocket is 5.5 cm. heart rate: 149 beats per minute. Maternal cervical canal: 4.2 cm long. Normal lower limit is 2.5 cm. biometrics: Biparietal diameter: 5.7 cm, 23 weeks 2 days Head circumference: 20.7 cm, 22 weeks 6 days Abdominal circumference: 18.5 cm, 23 weeks 2 days Femur length: 4 cm, 22 weeks 6 days Clinically estimated gestational age: 22 weeks 0 days Composite gestational age from present scan: 23 weeks 1 day Estimated weight and percentile: 562 g, 92 percentile Anatomic survey: Neuro: Ventricles are non-dilated at less than 10 mm. Cisterna magna is normal at 3-11 mm. Cerebellum is normal in size and morphology. Nuchal skin fold: Normal at less than 6 mm between 14-21 weeks gestational age. Face: Nose and lips, facial profile are normal. Spine: No evidence for spina bifida. Heart: 4-chambered heart is present, with normal ventricular outflow tracts. Diaphragm: Diaphragm is intact. Stomach: Left-sided stomach is present. Kidneys: No hydronephrosis. Normal is less than 5 mm in 2nd trimester, less than 7 mm in 3rd trimester. Cord: 3-vessel cord has orthotopic insertion. Bladder: Normal in size. Extremities: All 4 extremities identified. IMPRESSION: Single living intrauterine at 22 weeks 0 days, GIFTY of 03/10/2025. Estimated weight of 562 g, 92 percentile. Normal anatomy survey otherwise. We strive to produce accurate, complete, and clear reports of imaging services. To assist us in improving patient care, this report was composed using standard report templates and voice recognition software. Therefore, it may contain abnormal punctuation, insertions and/or omissions. Occasional wrong-word or sound-alike substitutions may occur. Though we review the report and make efforts to correct it, we do recommend that the report be read carefully in proper context to recognize any text inaccuracies. Dictated by: Alejandro Boggs M.D. on 11/05/2024 at 11:55 Approved by: Alejandro Boggs M.D. on 11/05/2024 at 11:59
== END ==
PROVIDERS: Referring Provider Obstetrics & Gynecology; Visit Provider Obstetrics & Gynecology
DX: Z34.82 Encounter for supervision of other normal pregnancy, second trimester (principal); Z3A.22 22 weeks gestation of pregnancy
CPT/HCPCS: 76811

== ENCOUNTER → 2024-11-06 10:36 | Outpatient (CLI) | payer OTHER, SELFPAY | PROVIDERS: Visit Provider Obstetrics & Gynecology | DX: Z34.80 Encounter for supervision of other normal pregnancy, unspecified trimester (principal) | CPT/HCPCS: 87086 ==

== ENCOUNTER → 2024-12-10 09:21 | Outpatient (CLI) | payer OTHER, SELFPAY ==
[2024-12-10 11:50] LABS: Hematocrit 35.2 % (36-46); Hemoglobin 11.9 g/dL (12.0-16.0)
[2024-12-10 12:15] LABS: GTT (PREG) 1 Hour PP 50gm Dose 80 mg/dL (76-139)
== END ==
PROVIDERS: Referring Provider Obstetrics & Gynecology; Visit Provider Obstetrics & Gynecology
DX: Z34.82 Encounter for supervision of other normal pregnancy, second trimester (principal); Z3A.26 26 weeks gestation of pregnancy
CPT/HCPCS: 36415; 82950; 85014; 85018

== ENCOUNTER → 2025-02-04 10:15 | Outpatient (CLI) | payer OTHER, SELFPAY ==
[2025-02-05 10:38] LABS: Strep Grp B PCR POS for Grp B Strep
== END ==
PROVIDERS: Visit Provider Obstetrics & Gynecology
DX: Z34.80 Encounter for supervision of other normal pregnancy, unspecified trimester (principal); Z3A.35 35 weeks gestation of pregnancy
CPT/HCPCS: 87653

== ENCOUNTER → 2025-02-13 16:31 | Outpatient (CLI) | payer OTHER, SELFPAY ==
--- NOTE | 2025-02-13 16:33 | DI.US.S_ITS ---
PROCEDURE: US OB FOLLOW UP INDICATIONS: H/O MACROSOMIA, SIZE > DATES OUTSIDE/PRIOR DATING DATA: Working GIFTY: 03/10/2025 TECHNIQUE: Real-time scanning was performed of the fetus, with image documentation and biometric measurements. Endovaginal scanning: Not performed COMPARISON: None. FINDINGS: General: A single living intrauterine gestation is present. Presentation: Vertex. Placenta: Placental position is anterior , without previa. Amniotic fluid index: 25.1 cm, normal range is 5-24 cm. Single deepest vertical pocket is 10.8 cm. heart rate: 119 beats per minute. Maternal cervical canal: 4.7 cm long. Normal lower limit is 2.5 cm. biometrics: Biparietal diameter: 9.3 centimeters, 38 weeks 2 days Head circumference: 34.3 centimeters, 39 weeks 4 days Abdominal circumference: 34.1 centimeters, 38 weeks 0 days Femur length: 7.4 centimeter, 38 weeks 0 days Clinically estimated gestational age: 36 weeks 3 days Composite gestational age from present scan: 30 weeks 3 days Estimated weight and percentile: 3434 grams, 92 percentile Other: Not applicable. IMPRESSION: Single living intrauterine at 36 weeks 3 days, GIFTY of 03/10/2025. Estimated weight of 3434 grams, 92 percentile. ENRICO is abnormal at 25.1 centimeter. We strive to produce accurate, complete, and clear reports of imaging services. To assist us in improving patient care, this report was composed using standard report templates and voice recognition software. Therefore, it may contain abnormal punctuation, insertions and/or omissions. Occasional wrong-word or sound-alike substitutions may occur. Though we review the report and make efforts to correct it, we do recommend that the report be read carefully in proper context to recognize any text inaccuracies. Dictated by: Alejandro Boggs M.D. on 02/14/2025 at 14:32 Approved by: Alejandro Boggs M.D. on 02/14/2025 at 14:42
== END ==
PROVIDERS: Referring Provider Obstetrics & Gynecology; Visit Provider Obstetrics & Gynecology
DX: O36.63X0 Maternal care for excessive fetal growth, third trimester, not applicable or unspecified (principal); Z3A.36 36 weeks gestation of pregnancy
CPT/HCPCS: 76816

== ENCOUNTER 2025-03-03 05:51 | Inpatient (IN) | payer OTHER, SELFPAY ==
[2025-03-03 06:59] LABS: Add Manual Diff / Slide Review NO; Basophils Absolute Auto 0 /uL (0-100); Basophils Percent Auto 0.4 % (0-2); Eosinophils Absolute Auto 100 /uL (0-450); Eosinophils Percent Auto 1.1 % (2-4); Hematocrit 35.6 % (36-46); Lymphocytes Absolute Auto 1500 /uL (1100-4500); Lymphocytes Percent Auto 20.3 % (25-40); Mean Corpuscular HGB Conc 33.7 % (30-36); Mean Corpuscular Hemoglobin 30.1 PG (26-34); Mean Corpuscular Volume 89.3 fL (80-100); Monocytes Absolute Auto 500 /uL (0-900); Monocytes Percent Auto 7.3 % (3-14); Neutrophils Absolute Auto 5300 /uL (1500-7000); Neutrophils Percent Auto 70.9 % (50-75); Platelet Count 140 X10^3/uL (150-400); Red Blood Cell Count 3.98 X10^6/uL (4.0-5.2); Red Cell Distribution Width 15.5 % (11.6-14.8); White Blood Cell Count 7.4 X10^3/uL (4.5-11.0)
[2025-03-03] MEDS: CITRIC ACID/SODIUM CITRATE 15 ML SOLUTION 30 ML PO (07:15)
--- NOTE | 2025-03-03 07:31 | PM.OBHP.IH.1 ---
OB HPI Date/Time Date of admission: 03/03/25 Date Patient Seen: 03/03/25 Time Patient Seen: 07:00 History of Present Condition Chief complaint: Repeat GIFTY Calculator Estimated Delivery Date Method Current WG Current Estimate 03/10/25 LMP (Certain) 39w 0d Other Estimates 03/07/25 Ultrasound #1 39w 3d care: good care Dating criteria OB: LMP confirmed by 1st trimester US Ultrasounds: normal mid trimester US Abnormal ultrasound findings: LGA Obstetrical complications: none Medical complications OB: none Indications Operative indications ( section): previous uterine surgery Preadmission Labs Last OB Lab Results: Blood Type A Positive 08/13/24 15:39 Antibody Screen Negative 08/13/24 15:39 Hct 35.6 % (36-46) L 03/03/25 06:45 Hgb 12.0 g/dL (12.0-16.0) 03/03/25 06:45 Hep Bs Antigen Negative s/c (NEGATIVE) 08/13/24 15:39 Hepatitis C Antibody Negative s/c (NEGATIVE) 08/13/24 15:39 Rubella Antibody 97.4 IU/mL (>15) 08/13/24 15:39 VZV IgG Antibody Reactive (Non Reactive) 08/13/24 15:39 Glucose 1 Hr 50 gm 80 mg/dL (76-139) 12/10/24 09:43 Group B Strep (PCR) Pos for grp b strep H 02/04/25 10:15 -: Chlamydia screen: negative, Gonorrhea screen: negative and Urine: negative Genetic Screens: Quad screen: Normal and Alpha-fetoprotein: Normal External Labs -: Urine: negative Prior (ies) Past Pregnancies Del. Date GA/Weeks Labor Lgth Wt Sex Route Outcome Anesthesia Place Delv Breastfeed Preg Comp Name 11/05/18 40.4 22 9 lb 13 oz Male live - full term [facility] 11.5 months none [place] 09/14/20 40+1 9 lb 10.853 oz Female live - full term [facility] 1 year Shweth[place] Delivery Date: 11/05/18 Last Updated by: Irena Sprague R.N. *Some swelling during labor and C/S was decided upon : non-emergent. Patient would really like a but understands that we don't. She will discuss this with Dr Marcos. *Rough awful recovery PP : milk came in almost a week later and saw within the first week. Delivery Date: 09/14/20 Last Updated by: Jessica Marcos D.O. Episode of hypotension after spinal, infant required 20 min of cpap after delivery then oxygen for 2 hours Evaluation Evaluation Baseline heart rate: 140 Variability: Moderate (11-25) monitor accelerations: Present Monitor Decelerations: Absent Category of Tracing: Reactive Status: Category l PFSH Medical History (Updated 09/16/24 @ 20:01 by Mellissa Goodman) Allergies Chilblains Febrile seizure Surgical History (Updated 10/11/24 @ 13:46 by Kvng Saldana MD) S/P primary low transverse (~11/05/18) H/O wisdom tooth extraction Family History (Updated 07/31/24 @ 13:10 by Katharina Cunha RN) Mother Hypertension Father Hypertension Grandfather Old age Prostate cancer Grandmother Dementia Post-polio syndrome Grandmother Family estrangement Grandfather Family estrangement Social History marital status: number of children: 2 household members: spouse and children lives independently: Yes caregiver/support person: Yes housing: house pets and animals: Yes (dog) education level: college (bachelor's degree) 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[employer]) current occupational exposures/hazards: No Previous occupational history: Event [employer]inating [facility] duy/yazdanism: [employer] special duy needs: No travel history: recent (Domestic only) seatbelt use: always water heater temp set < 120 deg: Yes working smoke detector in home: Yes fire extinguisher in home: Yes carbon monox detector in home: Yes firearms in home: Yes firearms unloaded and locked: Yes do you feel safe at home: Yes Smoking Status: Never smoker second hand exposure: No alcohol intake: former (occasionally when not ) substance use type: does not use during the past year weight has: increased > 10 lbs (following ankle injury) well-balanced diet: daily or most days daily servings fruits/ve-4 caffeine: Yes Type(s) of exercise: walking Meds Home Medications and Allergies Home Medications Medication Instructions Recorded Confirmed Type mupirocin 2 % topical ointment 1 applic topical BID #15 grams 10/27/20 02/25/25 Rx vitamin-ferrous sulfate tab PO 07/31/24 02/25/25 History 27 mg iron-folic acid 0.8 mg tablet famotidine 20 mg tablet 20 mg PO DAILY heartburn in 02/14/25 02/25/25 Rx #60 tabs Allergies Allergy/AdvReac Type Severity Reaction Status Date / Time No Known Drug Allergies Allergy Verified 02/25/25 10:34 Review of Systems Review of Systems ROS: Yes All systems reviewed with the patient and are negative except as otherwise documented OB Exam Resp Effort & Inspection: normal respiratory effort and able to speak in complete sentences GI Inspection: normal to inspection Palpation: Yes soft Other: gravid, size > dates, prior pfann incision noted Estimated Weight (lbs): 9 Other: deferred Objective Labs 03/03/25 06:45 Labs: Laboratory Results - last 24 hr 03/03/25 06:45 WBC 7.4 RBC 3.98 L Hgb 12.0 Hct 35.6 L MCV 89.3 MCH 30.1 MCHC 33.7 RDW 15.5 H Plt Count 140 L Neut % (Auto) 70.9 Lymph % (Auto) 20.3 L [place] % (Auto) 7.3 Eos % (Auto) 1.1 L Baso % (Auto) 0.4 Neut # (Auto) 5300 Lymph # (Auto) 1500 [place] # (Auto) 500 Eos # (Auto) 100 Baso # (Auto) 0 Assessment and Plan Assessment and Plan Assessment and Plan narrative: 34yo at 39w0d d=10wk US presents for scheduled indicated repeat low transverse section, h/o prior CS x2 Repeat RCS CBC, T&S on admission, starting h/h 12.0/35.6 2nd IV access prior to start of procedure, all uterotonics in room cat 1 tracing, maternal VSS/afebrile plan of procedure reviewed with patient and partner, increased risk of intraoperative complication and bleeding in setting of repeat procedure; patient is consented for repeat section and transfusion of blood products as medically indicated dispo: to OR Time-Based Coding :: [TOTAL MINUTES] spent with patient and on the chart (including review of chart, obtaining history, exam, reviewing outside data, placing orders, documenting exam and treatment plan, and counseling patient) on [DATE].
--- NOTE | 2025-03-03 07:31 | PM.PREOP ---
Pre-operative Note Interval Note History & Physical reviewed/Exam performed by Physician: Yes Changes to H&P: No ASA Class (for procedural sedation): III
[2025-03-03] MEDS: CEFAZOLIN 2 GM/100 ML PREMIX 100 ML IV (08:00)
[2025-03-03] MEDS: ACETAMINOPHEN IV 1,000 MG/100 ML VIAL 400 MG IV (08:15)
--- NOTE | 2025-03-03 08:25 | SUR.OPER ---
Supine on padded OR bed, head on pillow, arms secured on padded arm boards at <90 degrees abduction,bump to right hip, legs uncrossed, safety belt at thigh, tape over blanket over lower legs.
[2025-03-03 09:15] VITALS: BP 112/56; PULSE 89; RESP 18; TEMP 36.1; O2SAT 94
--- NOTE | 2025-03-03 09:16 | PM.OBCS.1 ---
Operative Date/Time/Diagnoses Date of procedure: 03/03/25 Time of procedure: 07:45 Pre-op diagnosis: 1) IUP at 39w0d; 2) h/o prior CS x2 Post-op diagnosis: same Procedure & Clinicians Procedure: repeat low transverse section Same procedure as scheduled: Yes Indications: 1) IUP at 39w0d 2) h/o prior CS x2 Surgeon: Laureen Khan Commercial Roofer: Falguni Greenberg Reason for Commercial Roofer: complexity of procedure, retraction, cutting of suture, imbrication layer of hysterotomy Anesthesia Type: Spinal Operative Notes Findings: liveborn female in cephalic presentation moderate pre-fascial adhesive disease grossly normal uterus, bilateral adnexae; noted tenuous lower uterine segment c/w prior procedure Closure Type: primary Specimen(s): cord blood Intraoperative meds administered: Acetaminophen, Ketorolac and Pitocin Estimated Blood Loss (mL): 500 Blood products transfused: none Procedure in detail: Pt was taken to the operating room and transferred to OR table.? The spinal was per anesthesia.? The patient was placed in the supine position, prepped and draped in a sterile fashion.? Prior to incision the level of anesthesia was rechecked and found to be adequate.? A timeout was once again performed. A pfannensteil incision was made 2cm superior to the pubic symphysis in line with prior scar.? This incision was carried down sharply to the level of the rectus fascia with noted moderate scar consistent with prior procedure.? The fascia was incised sharply with knife and the incision was extended bilaterally and superiorly using hagan scissors. The superior border of the fascia was elevated with two Nayeli clamps and bluntly dissected off of the rectus muscles followed by incision of the median raphe with the hagan scissors.? Attention was then turned to the inferior border of the fascia which was dissected away from the underlying musculature in a similar manner down to the level of the pubic symphysis.? The rectus muscles were then in the midline and the peritoneum was identified.? The peritoneum was entered sharply under direct visualization.? The peritoneal opening was then extended manually.? The creasing machine operator?s hand was inserted in the abdomen and the uterus was found to be in a levo-rotated position. The bladder blade was then inserted. The vesicouterine peritoneum was identified, elevated using DeBakey forceps and incised in the midline using Metzenbaum scissors.? The incision was carried laterally and superiorly bilaterally.? A bladder flap was further developed digitally and the bladder blade was replaced.? Next, a low transverse incision was made in the uterus using the knife.? The incision was extended laterally and superiorly bilaterally bluntly.? The creasing machine operator?s hand was then inserted into the uterus to find an in the vertex OT position.? The bladder blade was removed and infant?s vertex was grasped, flexed and brought to the incision where the infant was delivered atraumatically using fundal pressure.? The cord was doubly clamped and cut after 60s delay.? The was then passed to waiting pediatricians.? The placenta was delivered via gentle traction with additional manual extraction as necessary; the placenta was then passed off the field.? The uterus was exteriorized and the uterine cavity was wiped of all clots and debris.? The bladder blade was reinserted and the hysterotomy incision was repaired with #0 vicryl in a running locked fashion, followed by a second #0 vicryl in an imbricating fashion.? Tubes, ovaries and adnexae were visualized and noted to be grossly normal in appearance.? The uterus was replaced into the abdomen without difficulty and the hysterotomy was noted to be hemostatic off of tension.? The rectus fascia was closed using #1 vicryl in a running fashion.? The incision was irrigated and hemostasis was achieved using the bovie.? The subcutaneous space was reapproximated using plain gut suture in a running fashion.? The skin was closed using 4-0 monocryl followed by application of ANTHONY dressing.? All counts were correct x2.? The pt tolerated the procedure well and without difficulty. Fundal contents were expressed and fundus noted to be firm, level noted prior to patient transfer to PACU in stable condition.? Complications: none [place] Baby 1: Delivery Date: 03/03/25 Delivery Time: 08:31 Infant Gender: Female Presentation: vertex Placental Delivery Description: Expressed Cord Vessel Description: 3 Vessels score (1 min): 6 score (5 min): 7 Post-operative Condition: stable Disposition: PACU Aftercare: routine postop
[2025-03-03 09:20] VITALS: BP 122/60; PULSE 85; RESP 19; O2SAT 98
[2025-03-03 09:26] VITALS: BP 116/62; PULSE 80; RESP 18; O2SAT 95
[2025-03-03 09:31] VITALS: BP 117/59; PULSE 75; RESP 19; TEMP 36.1; O2SAT 95
[2025-03-03 09:37] VITALS: BP 119/62; PULSE 81; RESP 18; O2SAT 95
[2025-03-03] MEDS: LACTATED RINGERS 1,000 ML 999 ML IV (10:09)
[2025-03-03] MEDS: NALBUPHINE 20 MG/ML AMPUL 5 MG IV ×2 (13:25→20:24)
[2025-03-03] MEDS: ONDANSETRON 4 MG/2 ML INJ IV (14:00)
[2025-03-03] MEDS: KETOROLAC 30 MG/ML VIAL IV ×2 (15:18→21:45)
[2025-03-03] MEDS: ACETAMINOPHEN 325 MG TABLET 650 MG PO ×2 (16:25→22:15)
[2025-03-03] MEDS: OXYCODONE IR 5 MG TABLET PO (16:28)
[2025-03-04] MEDS: ACETAMINOPHEN 325 MG TABLET 650 MG PO ×3 (05:40→18:15)
[2025-03-04] MEDS: KETOROLAC 30 MG/ML VIAL IV (05:41)
[2025-03-04 05:47] LABS: Add Manual Diff / Slide Review NO; Basophils Absolute Auto 100 /uL (0-100); Basophils Percent Auto 0.8 % (0-2); Eosinophils Absolute Auto 100 /uL (0-450); Eosinophils Percent Auto 0.8 % (2-4); Hematocrit 32.4 % (36-46); Hemoglobin 10.9 g/dL (12.0-16.0); Lymphocytes Absolute Auto 2000 /uL (1100-4500); Lymphocytes Percent Auto 19.2 % (25-40); Mean Corpuscular HGB Conc 33.5 % (30-36); Mean Corpuscular Hemoglobin 30.1 PG (26-34); Mean Corpuscular Volume 89.7 fL (80-100); Monocytes Absolute Auto 700 /uL (0-900); Neutrophils Absolute Auto 7600 /uL (1500-7000); Neutrophils Percent Auto 72.2 % (50-75); Platelet Count 145 X10^3/uL (150-400); Red Blood Cell Count 3.61 X10^6/uL (4.0-5.2); Red Cell Distribution Width 15.2 % (11.6-14.8); White Blood Cell Count 10.5 X10^3/uL (4.5-11.0)
--- NOTE | 2025-03-04 08:07 | PM.OBPN.1 ---
Subjective - OB Subjective Patient comments: no complaints, pain well controlled, tolerating diet and flatus present baby status: doing well and nursing well [place] feeding status: exclusively breast feeding Narrative: POD1 s/p RCS. States pain is adequatelly controlled, has ambulated/voided without difficulty. doing well, had some difficulty overnight with secretions but no additional O2 requirements. No additional concerns Date Patient Seen: 03/04/25 Time Patient Seen: 07:30 Exam Vital Signs (past 8 hours): Oxygen Delivery Method Room Air maternal VSS/afebrile, reviewed in OBIX Const General: cooperative, healthy appearing and comfortable Nutritional Appearance: overweight Orientation: alert, awake and oriented x3 Limitations: mental status not altered HENMT Head: normal to inspection Resp Effort & Inspection: normal respiratory effort and able to speak in complete sentences Cardio Pulses: normal peripheral pulses GI Palpation: soft Other: fundus firm << umb, mild appropriate postop tenderness ANTHONY in place with adequate seal Other: deferred Skin General: no rashes or lesions noted Neuro General: patient alert, patient awake and patient oriented x3 Extrem General: normal to inspection Psych Mental Status: mental status grossly normal Judgment: judgment good Objective Labs 03/04/25 05:36 Labs: Laboratory Results - last 24 hr 03/04/25 05:36 WBC 10.5 RBC 3.61 L Hgb 10.9 L Hct 32.4 L MCV 89.7 MCH 30.1 MCHC 33.5 RDW 15.2 H Plt Count 145 L Neut % (Auto) 72.2 Lymph % (Auto) 19.2 L [place] % (Auto) 7.0 Eos % (Auto) 0.8 L Baso % (Auto) 0.8 Neut # (Auto) 7600 H Lymph # (Auto) 2000 [place] # (Auto) 700 Eos # (Auto) 100 Baso # (Auto) 100 Assessment & Plan Assessment and Plan (1) Encounter for maternal care for scar from repeat delivery: Status: Acute Plan day: 1 plan OB: routine care and routine postop care Comments: 34yo POD1 s/p RCS of LBFI, doing well Postop/ pain adequate controlled encouraged to increase ambulation, time OOB/in chair asymptomatic acute blood loss anemia, FeSO4 on discharge exclusively, consult PRN dispo: anticipate dc to home POD2 pending clinical course Time-Based Coding :: [TOTAL MINUTES] spent with patient and on the chart (including review of chart, obtaining history, exam, reviewing outside data, placing orders, documenting exam and treatment plan, and counseling patient) on [DATE].
[2025-03-04] MEDS: NALBUPHINE 20 MG/ML AMPUL 5 MG IV ×2 (08:18→16:56)
[2025-03-04] MEDS: OXYCODONE IR 5 MG TABLET PO ×3 (08:18→16:56)
[2025-03-04] MEDS: IBUPROFEN 600 MG TABLET PO ×2 (11:57→18:14)
[2025-03-04] MEDS: DOCUSATE 100 MG CAPSULE PO (13:37)
[2025-03-05] MEDS: IBUPROFEN 600 MG TABLET PO ×2 (00:34→06:36)
[2025-03-05] MEDS: ACETAMINOPHEN 325 MG TABLET 650 MG PO ×2 (00:34→06:37)
--- NOTE | 2025-03-05 07:43 | P.DS_ITS ---
Discharge Providers Provider Date of admission: 03/03/25 05:51 Discharge Date: 03/05/25 Primary care physician: Andrea Ordoñez MD Consults: 03/03/25 10:08 Consult to [facility] Consultant Routine Comment: Discharge provider: Laureen Khan MD Summary Hospital Course Date Patient Seen: 03/05/25 Time Patient Seen: 09:00 Diagnoses: Repeat section Hospital Course: 34yo admitted to facility at 39w3d for scheduled indicated repeat cesarena procedure, h/o prior CS x2. Pt underwent procedure without complication, noted moderate prefascial scar; initially with TTN that resolved by DOL2. Pt had uncomplicated course with return of bowel function, ambulating and voiding independently, pain well controlled with oral anaglesia. Patient discharged to home on POD2 meeting all discharge milestones, 1wk incision check in office Peripartum Data Delivery Method: Section Procedures: Repeat low transverse section complications: none [place] 1: Gender: Female Discharge Diagnosis (1) Encounter for maternal care for scar from repeat delivery: Status: Acute Status at Discharge Cognitive/behavioral status at discharge: oriented Functional status at discharge: independent ambulation Overall status at discharge: patient is back to baseline Time Spent with Patient Time attestation: Total time spent providing and/or coordinating discharge services: Time spent: Less than 30 minutes Specific discharge activities: no heavy lifting more than 10-15lbs Objective Labs 03/04/25 05:36 Exam Vital Signs (past 8 hours): Oxygen Delivery Method Room Air maternal VSS/afebrile, reviewed in OBIX Const General: cooperative and comfortable Nutritional Appearance: overweight Orientation: alert, awake and oriented x3 Limitations: mental status not altered Resp Effort & Inspection: normal respiratory effort and able to speak in complete sentences Cardio Pulses: normal peripheral pulses GI Inspection: normal to inspection Palpation: soft Other: ANTHONY in place with adequate seal, c/d/i Other: deferred Skin General: no rashes or lesions noted Neuro General: patient alert, patient awake and patient oriented x3 Extrem General: normal to inspection Psych Mental Status: mental status grossly normal Judgment: judgment good Discharge Plan Discharge Plan Patient Disposition: Home Provider Discharge Comment: Nothing in the vagina for 4 weeks. No heavy lifting more than baby + carrier for 6 weeks. Take ibuprofen and tylenol as scheduled. If you are taking narcotic pain medication make sure you are also taking stool softener to decrease constipation. Discharge orders & Medications Prescriptions: New acetaminophen 500 mg tablet 500 mg PO Q6H Qty: 30 0RF ibuprofen 800 mg tablet 800 mg PO Q8H Qty: 30 0RF oxycodone 5 mg capsule 5 mg PO Q8H PRN (Reason: pain) Qty: 12 0RF sennosides [Senna Laxative] 8.6 mg tablet 8.6 mg PO BEDTIME PRN (Reason: constipation) Qty: 30 0RF Continued vit-ferrous sulfat-FA 27 mg iron- 0.8 mg tablet See Rx Instructions .ROUTE .COMPLEX Rx Instructions: per MD order Discontinued mupirocin 2 % ointment 1 applic topical BID Qty: 15 0RF famotidine 20 mg tablet 20 mg PO DAILY Qty: 60 1RF Follow up/Referrals: Laureen Khan MD [Physician] - (Incision Check w/ Dr. Khan: March 11 @ 11am) Diet/Activity/Treatments Diet: Diet as Tolerated and Regular Skin/Wound/Dressing Care Report to your healthcare provider any signs of infection, such as:: chills, fever, increased pain, unusual drainage and unusual redness Visit Report/Discharge Packet Instructions: DI for Stand Alone Forms: Discharge: Care, Patient Portal/API, Stroke Signs & Symptoms Discharge Data Primary Care Provider: Andrea Ordoñez
[2025-03-05] MEDS: OXYCODONE IR 5 MG TABLET PO (08:50)
[2025-03-05] MEDS: DOCUSATE 100 MG CAPSULE PO (08:50)
[2025-03-05] MEDS: PRENATAL VIT,CALC/IRON/FOLIC 1 TABLET 1 TAB PO (08:50)
== END 2025-03-05 11:00 | disposition home or self-care (01) | DRG 788 ==
PROVIDERS: Admitting Provider Obstetrics & Gynecology; PCP Family Medicine; Referring Provider Obstetrics & Gynecology; Visit Provider Obstetrics & Gynecology
PROC: 10D00Z1 Extraction of Products of Conception, Low, Open Approach (ICD-10-PCS; CPT 59514; principal; 2025-03-03 07:45)
DX: O34.211 Maternal care for low transverse scar from previous cesarean delivery (principal); N85.8 Other specified noninflammatory disorders of uterus; O99.824 Streptococcus B carrier state complicating childbirth; Z3A.39 39 weeks gestation of pregnancy; Z37.0 Single live birth
CPT/HCPCS: 36415; 59050; 59510; 59514; 85025; 86850; 86900; 86901; J0131; J0690; J1100; J1885; J2274; J2300; J2405; J2704; J2765